=== PATIENT | female | born 1985 | race Caucasian/White ===

== ENCOUNTER 2022-01-19 09:10 | Inpatient (IN) | payer OTHER ==
[2022-01-19] MEDS ORDERED: OXYTOCIN 10 UNIT/ML 1 ML VIAL IM PRN (09:42)
[2022-01-19] MEDS ORDERED: METHYLERGONOVINE 0.2 MG/ML 1 ML AMP IM PRN (09:42)
[2022-01-19] MEDS ORDERED: TERBUTALINE 1 MG/ML VIAL SQ PRN (09:42)
[2022-01-19] MEDS ORDERED: CARBOPROST TROMETHAMINE 250 MCG/ML 1 ML AMP IM PRN (09:42)
[2022-01-19] MEDS ORDERED: LIDOCAINE 0.5% (PF) 5 MG/ML (50 ML SDV) SQ PRN (09:42)
[2022-01-19] MEDS ORDERED: OXYTOCIN 30 UNITS/500 ML NS 30 UNIT in SALINE 1 500ML.BAG IV SCH ×2 (09:45→16:15)
[2022-01-19 10:27] LABS: Appearance,Urine Clear (Clear); Bacteria,Urine Rare /hpf; Bilirubin,Urine Negative (Negative); Blood,Urine Negative (Negative); Color,Urine Light Yellow; Glucose,Urine (UA) Negative (Negative); Ketones,Urine Negative (Negative); Leukocyte Esterase,Urine Moderate (Negative); Mucus,Urine Rare /hpf; Nitrite,Urine Negative (Negative); PH, Urine 7.5 (5.0-8.0); Protein,Urine Negative (Negative); RBC,Urine 1 /hpf (0-5); Squamous Epithelial Cell,Urine 2 /hpf (0-4); Urobilinogen,Urine <2.0 mg/dL (<2.0); WBC,Urine 1 /hpf (0-5)
[2022-01-19 10:38] LABS: Basophils # (A) 0.1 k/uL (0-0.2); Basophils % (A) 1 %; Eosinophils # (A) 0.1 k/uL (0-0.7); Eosinophils % (A) 1 %; HCT 35.8 % (34.0-46.0); HGB 11.4 gm/dL (11.4-16.0); Lymphocytes # (A) 1.2 k/uL (1.0-4.8); Lymphocytes % (A) 11 %; MCV 90.7 fL (80.0-100.0); Monocytes # (A) 0.7 k/uL (0-1.0); Monocytes % (A) 6 %; Neutrophils # (A) 8.5 k/uL (1.3-7.7); Neutrophils % (A) 80 %; Platelet Count 189 k/uL (150-450); RBC 3.94 m/uL (3.80-5.40); RDW 12.9 % (11.5-15.5); WBC 10.6 k/uL (3.8-10.6)
[2022-01-19 10:57] LABS: Protein/Creatinine Ratio,Urine 0.421
[2022-01-19 10:59] LABS: African American GFR (CKD) >90 (>60 ml/min/1.73 sqM); Blood Urea Nitrogen 7 mg/dL (7-17); Non-African American GFR(CKD) >90 (>60 ml/min/1.73 sqM)
[2022-01-19] MEDS: LACTATED RINGERS 1,000 ML IV SCH ×2 (11:04→17:55)
[2022-01-19 11:07] LABS: ALT 15 U/L (4-34); AST 54 U/L (14-36); LDH 1225 U/L (313-618); Uric Acid 2.7 mg/dL (3.7-7.4)
[2022-01-19] MEDS ORDERED: ROPIVACAINE 100 MG, fentaNYL (PF). 200 MCG in SODIUM CHLORIDE 0.9% 76 ML EPIDURAL ONE (14:03)
--- NOTE | 2022-01-19 16:01 | P.PROBDLV ---
Vaginal Delivery Note - . Vaginal Delivery Note: 36-year-old 2 para 1001 at 39-2/7 weeks presented to labor and delivery with complaints of regular painful contractions. Patient was seen in active labor and was admitted to labor and delivery. Patient was noted be 5 cm on initial examination by myself. Amniotomy was performed and clear fluid was obtained. Patient progressed through labor eventually becoming uncomfortable requesting epidural placement. Epidural was placed without difficulty by the anesthesia department. Patient made progress towards complete was placed in a modified lithotomy position began pushing and had a normal spontaneous vaginal delivery of a viable female infant at 1538, weight of 7 pounds 5.6 ounces, Apgars of 9 and 9 at one and 5 metastases respectively. did have a loose nuchal cord which was delivered through. After two-minute delay the umbilical cord was doubly clamped and cut and infant was handed to the maternal abdomen. Spontaneous cry was noted at . The placenta was delivered spontaneously intact with a three-vessel cord being noted. Uterus is noted to become boggy after delivery with a gush of blood, Cytotec 1000 g was placed rectally. Uterus is noted to be firm, bladder was drained for partially 100 mL of clear yellow urine during this time.. On inspection the patient's vaginal vault no lacerations were appreciated. All counts were noted correct 2 at the delivery. Patient and infant tolerated delivery well and are resting comfortably.
[2022-01-19] MEDS ORDERED: HYDROCORTISONE 2.5% RECTAL CREAM 30 GM TUBE RECTAL PRN (16:02)
[2022-01-19] MEDS ORDERED: BENZOCAINE/MENTHOL SPRAY 1 GM/SPRAY AEROSOL TOPICAL PRN (16:02)
[2022-01-19] MEDS ORDERED: diphenhydrAMINE 50 MG/ML 1 ML VIAL IVP PRN ×2 (16:02)
[2022-01-19] MEDS ORDERED: LANOLIN CREAM 5 GM TUBE TOPICAL PRN (16:02)
[2022-01-19] MEDS ORDERED: ZOLPIDEM 5 MG TAB PO PRN (16:02)
[2022-01-19] MEDS ORDERED: diphenhydrAMINE 50 MG CAP PO PRN (16:02)
[2022-01-19] MEDS ORDERED: SIMETHICONE 80 MG CHEWABLE PO PRN (16:02)
[2022-01-19] MEDS ORDERED: diphenhydrAMINE 25 MG CAP PO PRN (16:02)
--- NOTE | 2022-01-19 16:02 | P.HPOB ---
History of Present Illness H&P Date: 01/19/22 Chief Complaint: IUP at 39 weeks, labor This is a 36-year-old at 39 weeks of gestation that presents with complaints of regular painful contractions. Patient denies loss of fluid or vaginal bleeding. Patient has been receiving routine care initially in [place] and then transferred to [facility]. Patient does have a history of preeclampsia with her first and was delivered at 37 weeks secondary to that diagnosis. Patient's blood pressures have been good during this . On bloodwork this patient has a blood type of B+, rubella status immune, RPR is nonreactive, hep B surface antigen is negative, HIV is negative, she did pass her 1 hour gestational diabetes screen, group beta strep cultures on 01/05 were negative. Review of Systems Constitutional: Denies chills, Denies fatigue, Denies fever Ears, nose, mouth and throat: Denies headache Cardiovascular: Denies leg edema Respiratory: Denies dyspnea Gastrointestinal: Denies constipation, Denies diarrhea, Denies nausea, Denies vomiting Genitourinary: Reports Past Medical History History of Any Multi-Drug Resistant Organisms: None Reported Smoking Status: Never smoker Medications and Allergies Home Medications Medication Instructions Recorded Confirmed Type Doxylamine Succinate [Unisom] 25 mg PO HS 01/19/22 01/19/22 History Ondansetron [Zofran] 4 mg PO Q12HR PRN 01/19/22 01/19/22 History Sennosides/Docusate Sodium 1 each PO DAILY 01/19/22 01/19/22 History [Senna-S 8.6-50 mg Tablet] Allergies Allergy/AdvReac Type Severity Reaction Status Date / Time Penicillins Allergy Unknown Verified 01/19/22 09:40 Childhood Exam Osteopathic Statement: *. No significant issues noted on an osteopathic structural exam other than those noted in the History and Physical/Consult. Intake and Output 01/18/22 01/19/22 01/19/22 22:59 06:59 14:59 Other: Weight 73.936 kg Targeted physical exam is performed in this date and health specialist a well-nourished well-developed female in no acute distress, breathing is nonlabored, heart has regular rhythm, abdomen is gravid, on cervical exam she is 3/70/-1 station membranes are noted to be intact. heart tones are noted to be category 1 and she is christian every 2-3 minutes. Results Result Diagrams: 01/19/22 10:17 01/19/22 10:17 Assessment and Plan (1) Term Current Visit: Yes Status: Acute Code(s): Z34.90 - ENCNTR FOR SUPRVSN OF NORMAL , UNSP, UNSP TRIMESTER SNOMED Code(s): 72947309 (2) Active labor Current Visit: Yes Status: Acute Code(s): SRC2533 - SNOMED Code(s): 117653667 Plan: 36-year-old at 39 2/7 weeks of gestation that presents with regular painful contractions. Patient is admitted to labor and delivery, actions for analgesia are discussed including epidural and Stadol. Patient will consider. Anticipate spontaneous vaginal delivery.
[2022-01-19] MEDS ORDERED: miSOPROStoL 200 MCG TAB RECTAL STA (16:03)
[2022-01-19 17:23] VITALS: RESP 16
[2022-01-19] MEDS: IBUPROFEN 600 MG TAB PO SCH ×2 (17:23→23:38)
[2022-01-19] MEDS: SENNOSIDES-DOCUSATE SODIUM 1 EACH TAB PO SCH (20:16)
[2022-01-19] MEDS: ACETAMINOPHEN TAB 325 MG TAB PO PRN (20:19)
[2022-01-20] MEDS: ACETAMINOPHEN TAB 325 MG TAB PO PRN ×3 (03:29→16:29)
[2022-01-20] MEDS: IBUPROFEN 600 MG TAB PO SCH ×2 (05:54→13:08)
[2022-01-20] MEDS: LACTATED RINGERS 1,000 ML IV SCH (06:22)
[2022-01-20 07:42] LABS: Basophils % (A) 0 %; Eosinophils # (A) 0.1 k/uL (0-0.7); Eosinophils % (A) 1 %; HCT 34.1 % (34.0-46.0); HGB 11.1 gm/dL (11.4-16.0); Lymphocytes # (A) 1.5 k/uL (1.0-4.8); Lymphocytes % (A) 12 %; MCH 29.4 pg (25.0-35.0); MCHC 32.5 g/dL (31.0-37.0); MCV 90.5 fL (80.0-100.0); Mean Platelet Volume 9.5; Monocytes # (A) 0.7 k/uL (0-1.0); Monocytes % (A) 6 %; Neutrophils # (A) 10.1 k/uL (1.3-7.7); Neutrophils % (A) 81 %; Platelet Count 185 k/uL (150-450); RBC 3.77 m/uL (3.80-5.40); RDW 12.8 % (11.5-15.5); WBC 12.6 k/uL (3.8-10.6)
[2022-01-20] MEDS: SENNOSIDES-DOCUSATE SODIUM 1 EACH TAB PO SCH (08:36)
--- NOTE | 2022-01-20 09:41 | P.DS ---
Providers Date of admission: 01/19/22 09:38 Expected date of discharge: 01/20/22 Attending physician: Lucero Biswas Primary care physician: Stated None - Discharge Diagnosis(es) (1) Term Current Visit: Yes Status: Acute (2) Active labor Current Visit: Yes Status: Acute (3) Status post vaginal delivery Current Visit: Yes Status: Acute Hospital Course: This is a 36-year-old G2 now P2 002 that presented at 39-2/7 weeks with complaints of regular painful contractions. Patient states she's been christian through the evening and they became closer and more painful. Patient was admitted to labor and delivery and was noted to be 5 cm. Amniotomy was performed and clear fluid was obtained. Patient progressed through labor eventually requesting an epidural. Epidural was placed without difficulty by [facility] anesthesia department. Patient progressed to complete began pushing and had a normal spontaneous vaginal delivery of a viable female infant at 1538, weight of 7 pounds 5.6 ounces. No lacerations were appreciated at delivery. Patient did have a hemorrhage with uterine atony and increased bleeding noted Cytotec 1000 g was given rectally. Uterus was then noted to be firm and patient did well overnight. On this day #1 patient is ambulating and voiding without difficulty. She is tolerating regular diet without nausea or vomiting. She states she is breast-feeding without difficulty. She is without concerns and would like discharge home at 24 hours if is discharged. Patient Condition at Discharge: Good Plan - Discharge Summary New Discharge Prescriptions: No Action Ondansetron [Zofran] 4 mg PO Q12HR PRN PRN Reason: Nausea Doxylamine Succinate [Unisom] 25 mg PO HS Sennosides/Docusate Sodium [Senna-S 8.6-50 mg Tablet] 1 each PO DAILY Discharge Medication List Doxylamine Succinate [Unisom] 25 mg PO HS 01/19/22 [History] Ondansetron [Zofran] 4 mg PO Q12HR PRN 01/19/22 [History] Sennosides/Docusate Sodium [Senna-S 8.6-50 mg Tablet] 1 each PO DAILY 01/19/22 [History] Follow up Appointment(s)/Referral(s): Lucero Biswas DO [Doctor of Osteopathic Medicine] - 4 Weeks Patient Instructions/Handouts: Vaginal Delivery (DC), Vaginal Delivery (GEN) Activity/Diet/Wound Care/Special Instructions: Patient's affect moderate vaginal bleeding status post vaginal delivery. Patient is to follow-up in 4 weeks for routine check. She is feeling concerns prior to this appointment she is urged to call the office. Discharge Disposition: HOME SELF-CARE
[2022-01-20 11:02] VITALS: BP 127/77; PULSE 77; TEMP 97.3
== END 2022-01-20 17:05 | disposition home or self-care (01) | DRG 806 ==
LOC: FBPOP 09:10 → 4FBP 09:38
PROVIDERS: ADMIT Obstetrics & Gynecology Obstetrics; ATTEND Obstetrics & Gynecology Obstetrics
PROC: 10907ZC Drainage of Amniotic Fluid, Therapeutic from Products of Conception, Via Natural or Artificial Opening (ICD-10-PCS; principal; 2022-01-19)
PROC: 10E0XZZ Delivery of Products of Conception, External Approach (ICD-10-PCS; principal; 2022-01-19)
PROC: 3E0R3BZ Introduction of Anesthetic Agent into Spinal Canal, Percutaneous Approach (ICD-10-PCS; principal; 2022-01-19)
PROC: 00HU33Z Insertion of Infusion Device into Spinal Canal, Percutaneous Approach (ICD-10-PCS; principal; 2022-01-19)
DX: O69.81X0 Labor and delivery complicated by cord around neck, without compression, not applicable or unspecified (principal); O72.1 Other immediate postpartum hemorrhage; Z37.0 Single live birth; Z3A.39 39 weeks gestation of pregnancy
CPT/HCPCS: 81001; 82565; 82570; 83615; 84156; 84450; 84460; 84520; 84550; 85025; 86850; 86900; 86901

== ENCOUNTER → 2022-04-14 | Outpatient (CLI) | payer OTHER ==
--- NOTE | 2022-04-15 04:14 | MR ---
EXAMINATION TYPE: MR knee LT wo con DATE OF EXAM: 04/14/2022 COMPARISON: None HISTORY: Knee pain. Multiplanar multi echo imaging of the left knee performed with no contrast. There is metal artifact from bilateral reconstructive surgery of the anterior cruciate ligament. ACL appears intact. Posterior cruciate ligament is intact. There is mild knee joint effusion. There are s ome cystic changes in the anterior joint space at the tibial spines. There is some metal artifact fro m surgery on the patella. The patella tendon is intact. There is large oblique tear through the anter ior horn of the lateral meniscus. There is mild thinning of the posterior horn of the medial meniscus . The collateral ligaments are intact. No evidence of a fracture. No focal bone destruction. IMPRESSION: Knee joint effusion. Large tear of the anterior horn of the lateral meniscus. Degenerative thinning o f the posterior horn medial meniscus. Previous surgery. No evidence of ligamentous tear.
== END | disposition home or self-care (01) ==
LOC: RADMRIMAIN 10:25
PROVIDERS: ATTEND Orthopaedic Surgery
DX: M23.242 Derangement of anterior horn of lateral meniscus due to old tear or injury, left knee (principal); M23.222 Derangement of posterior horn of medial meniscus due to old tear or injury, left knee; M25.462 Effusion, left knee; M25.562 Pain in left knee

== ENCOUNTER 2022-05-31 23:49 | Emergency (ER) | payer OTHER ==
[2022-06-01 01:14] LABS: Appearance,Urine Cloudy (Clear); Bacteria,Urine Occasional /hpf; Bilirubin,Urine Negative (Negative); Blood,Urine Large (Negative); Color,Urine Dark Yellow; Glucose,Urine (UA) Negative (Negative); Ketones,Urine Trace (Negative); Leukocyte Esterase,Urine Moderate (Negative); Mucus,Urine Many /hpf; Nitrite,Urine Negative (Negative); PH, Urine 5.5 (5.0-8.0); Protein,Urine 1+ (Negative); RBC,Urine 4 /hpf (0-5); Squamous Epithelial Cell,Urine 11 /hpf (0-4); Urobilinogen,Urine <2.0 mg/dL (<2.0); WBC,Urine 27 /hpf (0-5)
[2022-06-01] MEDS ORDERED: KETOROLAC 15 MG/ML 1 ML VIAL IVP STA (01:45)
[2022-06-01] MEDS ORDERED: SODIUM CHLORIDE 0.9% 1,000 ML IV STA (01:45)
[2022-06-01] MEDS ORDERED: ONDANSETRON 4 MG/2 ML VIAL IVP STA (01:45)
[2022-06-01 02:13] VITALS: TEMP 97.6
[2022-06-01 02:32] LABS: ALT 26 U/L (4-34); AST 25 U/L (14-36); African American GFR (CKD) >90 (>60 ml/min/1.73 sqM); Albumin 5.1 g/dL (3.5-5.0); Alkaline Phosphatase 65 U/L (38-126); Amylase 68 U/L (30-110); Anion Gap 12 mmol/L; Blood Urea Nitrogen 22 mg/dL (7-17); Calcium 9.9 mg/dL (8.4-10.2); Carbon Dioxide 25 mmol/L (22-30); Chloride 105 mmol/L (98-107); Glucose 172 mg/dL (74-99); Lipase 86 U/L (23-300); Non-African American GFR(CKD) >90 (>60 ml/min/1.73 sqM); Potassium 4.2 mmol/L (3.5-5.1); Sodium 142 mmol/L (137-145); Total Bilirubin 1.4 mg/dL (0.2-1.3); Total Protein 8.2 g/dL (6.3-8.2)
[2022-06-01 02:46] LABS: Basophils % (A) 0 %; Eosinophils # (A) 0.1 k/uL (0-0.7); Eosinophils % (A) 1 %; HCT 41.3 % (34.0-46.0); HGB 14.5 gm/dL (11.4-16.0); Lymphocytes # (A) 0.2 k/uL (1.0-4.8); Lymphocytes % (A) 2 %; MCH 30.7 pg (25.0-35.0); MCV 87.5 fL (80.0-100.0); Mean Platelet Volume 7.9; Monocytes # (A) 0.4 k/uL (0-1.0); Monocytes % (A) 3 %; Neutrophils # (A) 10.8 k/uL (1.3-7.7); Neutrophils % (A) 93 %; Platelet Count 155 k/uL (150-450); RBC 4.72 m/uL (3.80-5.40); RDW 12.7 % (11.5-15.5); WBC 11.5 k/uL (3.8-10.6)
--- NOTE | 2022-06-01 02:49 | ED ---
Abdominal Pain HPI - General Chief Complaint: Abdominal Pain Stated Complaint: vomiting,diarrhea Time Seen by Provider: 06/01/22 01:41 Source: patient, RN notes reviewed Mode of arrival: ambulatory Limitations: no limitations - History of Present Illness Initial Comments: This is a 36-year-old female who presents to the emergency department for nausea, vomiting, and abdominal pain. States that the symptoms started earlier this evening. She also reports associated diarrhea. She has been unable to keep anything down. Denies any blood in her stool or vomit. Believes that the abdominal pain is due to the nausea and vomiting and describes it as a cramping. She does note that she made stirfry for dinner and subsequently used sauce, and wonders if this may be the reason for her symptoms. Denies any fevers, chills, sore throat, cough, dyspnea, chest pain, palpitations, back pain, or headaches. MD Complaint: abdominal pain - Related Data Home Medications Medication Instructions Recorded Confirmed Doxylamine Succinate [Unisom] 25 mg PO HS 01/19/22 01/19/22 Ondansetron [Zofran] 4 mg PO Q12HR PRN 01/19/22 01/19/22 Sennosides/Docusate Sodium 1 each PO DAILY 01/19/22 01/19/22 [Senna-S 8.6-50 mg Tablet] Allergies Allergy/AdvReac Type Severity Reaction Status Date / Time Penicillins Allergy Unknown Verified 06/01/22 00:03 Childhood Review of Systems ROS Statement: Those systems with pertinent positive or pertinent negative responses have been documented in the HPI. ROS Other: All systems not noted in ROS Statement are negative. Past Medical History Past Medical History: No Reported History Additional Past Medical History / Comment(s): HYPERTENSION WITH History of Any Multi-Drug Resistant Organisms: None Reported Past Surgical History: Tonsillectomy Additional Past Surgical History / Comment(s): Left ACL repair, Past Anesthesia/Blood Transfusion Reactions: No Reported Reaction Past Psychological History: No Psychological Hx Reported Smoking Status: Never smoker Past Alcohol Use History: Occasional Past Drug Use History: None Reported General Exam Limitations: no limitations General appearance: alert, in no apparent distress Head exam: Present: atraumatic, normocephalic, normal inspection Respiratory exam: Present: normal lung sounds bilaterally. Absent: respiratory distress, wheezes, rales, rhonchi, stridor Cardiovascular Exam: Present: regular rate, normal rhythm, normal heart sounds. Absent: systolic murmur, diastolic murmur, rubs, gallop, clicks GI/Abdominal exam: Present: soft, normal bowel sounds. Absent: distended, tenderness, guarding, rebound, rigid Neurological exam: Present: alert, oriented X3, CN II-XII intact Psychiatric exam: Present: normal affect, normal mood Skin exam: Present: warm, dry, intact, normal color. Absent: rash Course Vital Signs 05/31/22 06/01/22 06/01/22 23:59 02:11 04:09 Temperature 96.8 F L 97.6 F Pulse Rate 116 H 81 96 Respiratory 20 18 16 Rate Blood Pressure 100/69 115/77 111/64 O2 Sat by Pulse 98 100 98 Oximetry Medical Decision Making - Medical Decision Making This is a 36-year-old female who presents to the emergency department for nausea, vomiting, and abdominal pain. Was pt. sent in by a medical professional or institution? @ -No Did you speak to anyone other than the patient for history? @ -No Did you review nursing and triage notes? @ -Agree, accurate with regards to the patient's symptoms. Were old charts reviewed? @ -No Differential Diagnosis? @ Differential Abdominal Pain Women: Appendicitis, Cholecystitis, diverticulosis, ischemic bowel, pancreatitis, hepatitis, UTI, gastroenteritis, AAA, incarcerated hernia, bowel obstruction, constipation, inflammatory bowel, hepatitis, peptic ulcer disease, splenic inf arction, perforated viscus, vulvitis, ovarian torsion, PID, kidney stone, placenta abruption, this is not meant to be an all-inclusive list X-rays interpreted by me (1pt min.)? @ -Abdominal x-ray obtained, my interpretation identifies no free air or bowel wall thickening. What testing was considered but not performed? (CT, X-rays, U/S, labs)? Why? @ -None What meds were considered but not given? Why? @ -None Did you discuss the management of the patient with other professionals? @ -No Did you reconcile home meds? @ -No Was smoking cessation discussed for >3mins.? @ -No Was critical care preformed (if so, how long)? @ -No Were there social determinants of health that impacted care today? How? (Homelessness, low income, unemployed, alcoholism, drug addiction, transportation, low edu. Level, literacy, decrease access to med. care, [facility], rehab)? @ -No Was there de-escalation of care discussed even if they declined? (Discuss DNR or withdrawal of care, Hospice)? @ -No What co-morbidities impacted this encounter? (DM, HTN, Smoking, COPD, CAD, Cancer, CVA, Hep., AIDS, mental health diagnosis, sleep apnea, morbid obesity)? @ -None Was patient admitted / discharged? @ -Discharged. Lab work obtained and found to be nonactionable. Abdominal x- ray obtained as well with my interpretation listed above. Urinalysis consistent with contamination. She was given IV fluids, Zofran, and Toradol, which she states is entirely resolved her symptoms. She was able to eat and drink prior discharged without any difficulty. Advised that the symptoms are most likely related to a gastroenteritis which may be viral or have been from the sauce she used for dinner. When this was discussed, she states that she received a call from her father, who is also vomiting after eating the stirfry, further strengthening this possibility. She has Zofran at home, and declines the need for a refill. Advised she use the zofran every 8 hours as needed, remain well-hydrated, and slowly advance her diet as tolerated. Drug Therapy requiring intensive monitoring for toxicity (Heparin, Nitro, Insulin, Cardizem)? @ -None Were any procedures done? @ -None Diagnosis/symptom? @ -Gastroenteritis Acute, or Chronic, or Acute on Chronic? @ -Acute Uncomplicated (without systemic symptoms) or Complicated (systemic symptoms)? @ -Uncomplicated Side effects of treatment? @ -No new treatment provided. Exacerbation, Progression, or Severe Exacerbation] @ -Not applicable Poses a threat to life or bodily function? @ -May impact her function depending on the severity of her symptoms. Return precautions reviewed in depth, the patient is instructed to return to the emergency department with any new, worsening, or concerning symptoms. Patient verbalized understanding. This case was discussed in detail with the attending ED physician. Presentation, findings, and treatment plan discussed in detail as well. - Lab Data Result diagrams: 06/01/22 02:30 06/01/22 01:57 Lab Results 01/05/23 01/05/23 01/05/23 Range/Units 00:27 00:27 01:57 WBC (3.8-10.6) k/uL RBC (3.80-5.40) m/uL Hgb (11.4-16.0) gm/dL Hct (34.0-46.0) % MCV (80.0-100.0) fL MCH (25.0-35.0) pg MCHC (31.0-37.0) g/dL RDW (11.5-15.5) % Plt Count (150-450) k/uL MPV Neutrophils % % Lymphocytes % % Monocytes % % Eosinophils % % Basophils % % Neutrophils # (1.3-7.7) k/uL Lymphocytes # (1.0-4.8) k/uL Monocytes # (0-1.0) k/uL Eosinophils # (0-0.7) k/uL Basophils # (0-0.2) k/uL Sodium 142 (137-145) mmol/L Potassium 4.2 (3.5-5.1) mmol/L Chloride 105 (98-107) mmol/L Carbon Dioxide 25 (22-30) mmol/L Anion Gap 12 mmol/L BUN 22 H (7-17) mg/dL Creatinine 0.78 (0.52-1.04) mg/dL Est GFR (CKD-EPI)AfAm >90 (>60 ml/min/1.73 sqM) Est GFR (CKD-EPI)NonAf >90 (>60 ml/min/1.73 sqM) Glucose 172 H (74-99) mg/dL Calcium 9.9 (8.4-10.2) mg/dL Total Bilirubin 1.4 H (0.2-1.3) mg/dL AST 25 (14-36) U/L ALT 26 (4-34) U/L Alkaline Phosphatase 65 (38-126) U/L Total Protein 8.2 (6.3-8.2) g/dL Albumin 5.1 H (3.5-5.0) g/dL Amylase 68 (30-110) U/L Lipase 86 (23-300) U/L Urine Color Dark Yellow Urine Appearance Cloudy H (Clear) Urine pH 5.5 (5.0-8.0) Ur Specific [place] 1.030 (1.001-1.035) Urine Protein 1+ H (Negative) Urine Glucose (UA) Negative (Negative) Urine Ketones Trace H (Negative) Urine Blood Large H (Negative) Urine Nitrite Negative (Negative) Urine Bilirubin Negative (Negative) Urine Urobilinogen <2.0 (<2.0) mg/dL Ur Leukocyte Esterase Moderate H (Negative) Urine RBC 4 (0-5) /hpf Urine WBC 27 H (0-5) /hpf Ur Squamous Epith Cells 11 H (0-4) /hpf Urine Bacteria Occasional H (None) /hpf Urine Mucus Many H (None) /hpf Urine HCG, Qual Not Detected (Not Detectd) 06/01/22 Range/Units 02:30 WBC 11.5 H (3.8-10.6) k/uL RBC 4.72 (3.80-5.40) m/uL Hgb 14.5 (11.4-16.0) gm/dL Hct 41.3 (34.0-46.0) % MCV 87.5 (80.0-100.0) fL MCH 30.7 (25.0-35.0) pg MCHC 35.0 (31.0-37.0) g/dL RDW 12.7 (11.5-15.5) % Plt Count 155 (150-450) k/uL MPV 7.9 Neutrophils % 93 % Lymphocytes % 2 % Monocytes % 3 % Eosinophils % 1 % Basophils % 0 % Neutrophils # 10.8 H (1.3-7.7) k/uL Lymphocytes # 0.2 L (1.0-4.8) k/uL Monocytes # 0.4 (0-1.0) k/uL Eosinophils # 0.1 (0-0.7) k/uL Basophils # 0.0 (0-0.2) k/uL Sodium (137-145) mmol/L Potassium (3.5-5.1) mmol/L Chloride (98-107) mmol/L Carbon Dioxide (22-30) mmol/L Anion Gap mmol/L BUN (7-17) mg/dL Creatinine (0.52-1.04) mg/dL Est GFR (CKD-EPI)AfAm (>60 ml/min/1.73 sqM) Est GFR (CKD-EPI)NonAf (>60 ml/min/1.73 sqM) Glucose (74-99) mg/dL Calcium (8.4-10.2) mg/dL Total Bilirubin (0.2-1.3) mg/dL AST (14-36) U/L ALT (4-34) U/L Alkaline Phosphatase (38-126) U/L Total Protein (6.3-8.2) g/dL Albumin (3.5-5.0) g/dL Amylase (30-110) U/L Lipase (23-300) U/L Urine Color Urine Appearance (Clear) Urine pH (5.0-8.0) Ur Specific [place] (1.001-1.035) Urine Protein (Negative) Urine Glucose (UA) (Negative) Urine Ketones (Negative) Urine Blood (Negative) Urine Nitrite (Negative) Urine Bilirubin (Negative) Urine Urobilinogen (<2.0) mg/dL Ur Leukocyte Esterase (Negative) Urine RBC (0-5) /hpf Urine WBC (0-5) /hpf Ur Squamous Epith Cells (0-4) /hpf Urine Bacteria (None) /hpf Urine Mucus (None) /hpf Urine HCG, Qual (Not Detectd) - Radiology Data Radiology results: report reviewed, image reviewed Disposition Clinical Impression: Gastroenteritis Disposition: HOME SELF-CARE Instructions (If sedation given, give patient instructions): Gastroenteritis (ED) Additional Instructions: Return to the emergency department with any new, worsening, or concerning symptoms. Continue to take the Zofran up to every 8 hours as needed for nausea and vomiting. Alternate with ibuprofen and Tylenol as needed for discomfort. Slowly advance your diet as tolerated and make sure that you remain well- hydrated. Follow up with your primary care provider in 1-2 days. Is patient prescribed a controlled substance at d/c from ED?: No Referrals: None,Stated [Primary Care Provider] - 1-2 days
--- NOTE | 2022-06-01 02:52 | XR ---
EXAMINATION TYPE: XR abdomen 1V DATE OF EXAM: 06/01/2022 COMPARISON: NONE HISTORY: Abdominal pain TECHNIQUE: 2 views upright FINDINGS: There is no sign of intestinal obstruction or pneumoperitoneum. Fecal pattern is normal. No sign of a mass. Lung bases are clear. IMPRESSION: Nonacute abdomen.
[2022-06-01 04:09] VITALS: BP 111/64; PULSE 96; RESP 16
== END 2022-06-01 04:15 | disposition home or self-care (01) ==
LOC: EC 23:49
DX: K52.9 Noninfective gastroenteritis and colitis, unspecified (principal); Z88.0 Allergy status to penicillin
CPT/HCPCS: 36415; 80053; 82150; 83690; 85025; 81001; 81025; 87086; 74018; 99284; 96374; 96375; 96361; J2405; J1885

== ENCOUNTER 2022-09-08 00:39 | Emergency (ER) | payer OTHER ==
[2022-09-08 00:46] VITALS: BP 125/85; PULSE 92; RESP 18; TEMP 97.7
[2022-09-08] MEDS ORDERED: SODIUM CHLORIDE 0.9% 1,000 ML IV ONE ×2 (01:08→02:36)
--- NOTE | 2022-09-08 01:50 | ED ---
General Adult HPI - General Chief complaint: Abdominal Pain Stated complaint: Abdominal Pain, NVD Time Seen by Provider: 09/08/22 00:54 Source: patient Mode of arrival: ambulatory Limitations: no limitations - History of Present Illness Initial comments: This is a 36-year-old female with no past medical history presents emergency department for nausea, vomiting and diarrhea over the last 4 days. The patient stated that the symptoms have become worse including worsening diarrhea. The patient stated that she did have Zofran at home as helped with the nausea and vomiting at home. The patient stated that she did not expect the symptoms to last this long and felt that she was getting mildly dehydrated so she came to the emergency department. The patient stated that multiple people that she was with on Sunday have similar symptoms. The patient denied any fevers and chills however. The patient did state that she had some minor body aches. The patient denied any other acute pain or complaints at this time and was resting in bed comfortably. - Related Data Home Medications Medication Instructions Recorded Confirmed Doxylamine Succinate [Unisom] 25 mg PO HS 01/19/22 01/19/22 Ondansetron [Zofran] 4 mg PO Q12HR PRN 01/19/22 01/19/22 Sennosides/Docusate Sodium 1 each PO DAILY 01/19/22 01/19/22 [Senna-S 8.6-50 mg Tablet] Previous Rx's Medication Instructions Recorded Dicyclomine [Bentyl] 10 mg PO TID #30 capsule 09/08/22 Ondansetron Odt [Zofran Odt] 4 mg PO Q8HR PRN #20 tab 09/08/22 Allergies Allergy/AdvReac Type Severity Reaction Status Date / Time Penicillins Allergy Unknown Verified 09/08/22 00:43 Childhood Review of Systems ROS Statement: Those systems with pertinent positive or pertinent negative responses have been documented in the HPI. ROS Other: All systems not noted in ROS Statement are negative. Past Medical History Past Medical History: No Reported History Additional Past Medical History / Comment(s): HYPERTENSION WITH History of Any Multi-Drug Resistant Organisms: None Reported Past Surgical History: Tonsillectomy Additional Past Surgical History / Comment(s): Left ACL repair, Past Anesthesia/Blood Transfusion Reactions: No Reported Reaction Past Psychological History: No Psychological Hx Reported Smoking Status: Never smoker Past Alcohol Use History: Occasional Past Drug Use History: None Reported General Exam Limitations: no limitations General appearance: alert, in no apparent distress Head exam: Present: atraumatic, normocephalic, normal inspection Eye exam: Present: normal appearance, PERRL Pupils: Present: normal accommodation ENT exam: Present: normal exam, normal oropharynx, mucous membranes moist Neck exam: Present: normal inspection, full ROM Respiratory exam: Present: normal lung sounds bilaterally Cardiovascular Exam: Present: regular rate, normal rhythm, normal heart sounds GI/Abdominal exam: Present: soft, normal bowel sounds Extremities exam: Present: normal inspection, full ROM Back exam: Present: normal inspection, full ROM Neurological exam: Present: alert, oriented X3, CN II-XII intact Psychiatric exam: Present: normal affect, normal mood Skin exam: Present: warm, dry Course Vital Signs 09/08/22 00:43 Temperature 97.7 F Pulse Rate 92 Respiratory 18 Rate Blood Pressure 125/85 O2 Sat by Pulse 98 Oximetry Medical Decision Making - Medical Decision Making Was pt. sent in by a medical professional or institution ([facility], [facility], urgent care, hospital, or [facility]...) When possible be specific @ -No Did you speak to anyone other than the patient for history (EMS, parent, family, police, friend...)? What history was obtained from this source @ -No Did you review nursing and triage notes (agree or disagree)? Why? @ -I reviewed and agree with nursing and triage notes Were old charts reviewed (outside hosp., previous admission, EMS record, old EKG, old radiological studies, urgent care reports/EKG's, [facility] records)? Report findings @ -No old charts were reviewed Differential Diagnosis (chest pain, altered mental status, abdominal pain women, abdominal pain men, vaginal bleeding, weakness, fever, dyspnea, syncope, headache, dizziness, GI bleed, back pain, seizure, CVA, palpatations, mental health)? @ -Gastroenteritis, COVID-19, influenza EKG interpreted by me (3pts min.). @ -None X-rays interpreted by me (1pt min.). @ -None done CT interpreted by me (1pt min.). @ -None done U/S interpreted by me (1pt. min.). @ -None done What testing was considered but not performed or refused? (CT, X-rays, U/S, labs)? Why? @ -None What meds were considered but not given or refused? Why? @ -None Did you discuss the management of the patient with other professionals (professionals i.e. , PA, [employer], lab, RT, psych nurse, rn social services, chemical processor, teacher, commissioned fire officer, case checker)? Give summary @ -No Was smoking cessation discussed for >3mins.? @ -No Was critical care preformed (if so, how long)? @ -No Were there social determinants of health that impacted care today? How? (Homelessness, low income, unemployed, alcoholism, drug addiction, transportation, low edu. Level, literacy, decrease access to med. care, care home, rehab)? @ -No Was there de-escalation of care discussed even if they declined (Discuss DNR or withdrawal of care, Hospice)? DNR status @ -No What co-morbidities impacted this encounter? (DM, HTN, Smoking, COPD, CAD, Cancer, CVA, ARF, Chemo, Hep., AIDS, mental health diagnosis, sleep apnea, morbid obesity)? @ -None Was patient admitted / discharged? Hospital course, mention meds given and route, prescriptions, significant lab abnormalities, going to OR and other pertinent info. @ -The patient was seen and evaluated emergency department. Physical exam, the patient was resting in bed without any acute distress. Vital signs admission were stable. Due to the nature the patient's symptoms, laboratory workup was obtained and was all within normal limits. The patient received a total of 2 L of normal saline fluid as well as Toradol. On reevaluation, the patient stated that she had improvement of her symptoms but still had abdominal discomfort. There was no specific acute abdominal pain but noted cramping. The patient was given IM Bentyl as well as Zofran and on reevaluation had significant improvement in her pain. The patient likely had gastroenteritis as a cause of her symptoms. The patient was given a prescription for both Bentyl and Zofran and told to continue to monitor her symptoms to report back to the emergency department if they became acutely worse. The patient was advised to continue to hydrate at home and follow-up with her primary care physician if needed. The patient was understanding of these instructions and all of her questions were a nswered appropriately. The patient was discharged home in stable condition. Undiagnosed new problem with uncertain prognosis? @ -No Drug Therapy requiring intensive monitoring for toxicity (Heparin, Nitro, Insulin, Cardizem)? @ -No Were any procedures done? @ -No Diagnosis/symptom? @ -Gastroenteritis Acute, or Chronic, or Acute on Chronic? @ -Acute Uncomplicated (without systemic symptoms) or Complicated (systemic symptoms)? @ -Uncomplicated Side effects of treatment? @ -No Exacerbation, Progression, or Severe Exacerbation? @ -No Poses a threat to life or bodily function? How? (Chest pain, [place], [place], pneumonia, PE, COPD, DKA, ARF, appy, cholecystitis, CVA, Diverticulitis, Homicidal, Suicidal, threat to staff... and all critical care pts) @ -No - Lab Data Result diagrams: 09/08/22 01:19 09/08/22 01:19 Lab Results 09/08/22 09/08/22 09/08/22 Range/Units 01:19 01:19 01:19 WBC 7.8 (3.8-10.6) k/uL RBC 4.61 (3.80-5.40) m/uL Hgb 13.9 (11.4-16.0) gm/dL Hct 41.1 (34.0-46.0) % MCV 89.3 (80.0-100.0) fL MCH 30.1 (25.0-35.0) pg MCHC 33.7 (31.0-37.0) g/dL RDW 12.3 (11.5-15.5) % Plt Count 144 L (150-450) k/uL MPV 8.1 Neutrophils % 80 % Lymphocytes % 10 % Monocytes % 7 % Eosinophils % 1 % Basophils % 0 % Neutrophils # 6.2 (1.3-7.7) k/uL Lymphocytes # 0.8 L (1.0-4.8) k/uL Monocytes # 0.5 (0-1.0) k/uL Eosinophils # 0.1 (0-0.7) k/uL Basophils # 0.0 (0-0.2) k/uL Sodium 140 (137-145) mmol/L Potassium 3.5 (3.5-5.1) mmol/L Chloride 110 H (98-107) mmol/L Carbon Dioxide 23 (22-30) mmol/L Anion Gap 7 mmol/L BUN 11 (7-17) mg/dL Creatinine 0.63 (0.52-1.04) mg/dL Est GFR (CKD-EPI)AfAm >90 (>60 ml/min/1.73 sqM) Est GFR (CKD-EPI)NonAf >90 (>60 ml/min/1.73 sqM) Glucose 102 H (74-99) mg/dL Calcium 8.5 (8.4-10.2) mg/dL Magnesium 2.0 (1.6-2.3) mg/dL Total Bilirubin 0.3 (0.2-1.3) mg/dL AST 22 (14-36) U/L ALT 19 (4-34) U/L Alkaline Phosphatase 48 (38-126) U/L Total Protein 6.5 (6.3-8.2) g/dL Albumin 4.0 (3.5-5.0) g/dL Lipase 150 (23-300) U/L Urine Color Urine Appearance (Clear) Urine pH (5.0-8.0) Ur Specific [place] (1.001-1.035) Urine Protein (Negative) Urine Glucose (UA) (Negative) Urine Ketones (Negative) Urine Blood (Negative) Urine Nitrite (Negative) Urine Bilirubin (Negative) Urine Urobilinogen (<2.0) mg/dL Ur Leukocyte Esterase (Negative) Urine RBC (0-5) /hpf Urine WBC (0-5) /hpf Ur Squamous Epith Cells (0-4) /hpf Urine Bacteria (None) /hpf Urine HCG, Qual Not Detected (Not Detectd) Influenza Type A (PCR) (Not Detectd) Influenza Type B (PCR) (Not Detectd) RSV (PCR) (Not Detectd) SARS-CoV-2 (PCR) (Not Detectd) 09/08/22 09/08/22 Range/Units 01:19 01:19 WBC (3.8-10.6) k/uL RBC (3.80-5.40) m/uL Hgb (11.4-16.0) gm/dL Hct (34.0-46.0) % MCV (80.0-100.0) fL MCH (25.0-35.0) pg MCHC (31.0-37.0) g/dL RDW (11.5-15.5) % Plt Count (150-450) k/uL MPV Neutrophils % % Lymphocytes % % Monocytes % % Eosinophils % % Basophils % % Neutrophils # (1.3-7.7) k/uL Lymphocytes # (1.0-4.8) k/uL Monocytes # (0-1.0) k/uL Eosinophils # (0-0.7) k/uL Basophils # (0-0.2) k/uL Sodium (137-145) mmol/L Potassium (3.5-5.1) mmol/L Chloride (98-107) mmol/L Carbon Dioxide (22-30) mmol/L Anion Gap mmol/L BUN (7-17) mg/dL Creatinine (0.52-1.04) mg/dL Est GFR (CKD-EPI)AfAm (>60 ml/min/1.73 sqM) Est GFR (CKD-EPI)NonAf (>60 ml/min/1.73 sqM) Glucose (74-99) mg/dL Calcium (8.4-10.2) mg/dL Magnesium (1.6-2.3) mg/dL Total Bilirubin (0.2-1.3) mg/dL AST (14-36) U/L ALT (4-34) U/L Alkaline Phosphatase (38-126) U/L Total Protein (6.3-8.2) g/dL Albumin (3.5-5.0) g/dL Lipase (23-300) U/L Urine Color Light Yellow Urine Appearance Cloudy H (Clear) Urine pH 5.5 (5.0-8.0) Ur Specific [place] 1.010 (1.001-1.035) Urine Protein Negative (Negative) Urine Glucose (UA) Negative (Negative) Urine Ketones Trace H (Negative) Urine Blood Negative (Negative) Urine Nitrite Negative (Negative) Urine Bilirubin Negative (Negative) Urine Urobilinogen <2.0 (<2.0) mg/dL Ur Leukocyte Esterase Negative (Negative) Urine RBC 1 (0-5) /hpf Urine WBC 1 (0-5) /hpf Ur Squamous Epith Cells 1 (0-4) /hpf Urine Bacteria Rare H (None) /hpf Urine HCG, Qual (Not Detectd) Influenza Type A (PCR) Not Detected (Not Detectd) Influenza Type B (PCR) Not Detected (Not Detectd) RSV (PCR) Not Detected (Not Detectd) SARS-CoV-2 (PCR) Not Detected (Not Detectd) Disposition Clinical Impression: Gastroenteritis Disposition: HOME SELF-CARE Condition: Stable Instructions (If sedation given, give patient instructions): Gastroenteritis (DC) Prescriptions: Dicyclomine [Bentyl] 10 mg PO TID #30 capsule Ondansetron Odt [Zofran Odt] 4 mg PO Q8HR PRN #20 tab PRN Reason: Nausea Is patient prescribed a controlled substance at d/c from ED?: No Referrals: None,Stated [Primary Care Provider] - 1-2 days Time of Disposition: 03:00
[2022-09-08 02:12] LABS: ALT 19 U/L (4-34); AST 22 U/L (14-36); African American GFR (CKD) >90 (>60 ml/min/1.73 sqM); Alkaline Phosphatase 48 U/L (38-126); Anion Gap 7 mmol/L; Blood Urea Nitrogen 11 mg/dL (7-17); Calcium 8.5 mg/dL (8.4-10.2); Carbon Dioxide 23 mmol/L (22-30); Chloride 110 mmol/L (98-107); Glucose 102 mg/dL (74-99); Lipase 150 U/L (23-300); Non-African American GFR(CKD) >90 (>60 ml/min/1.73 sqM); Potassium 3.5 mmol/L (3.5-5.1); Sodium 140 mmol/L (137-145); Total Bilirubin 0.3 mg/dL (0.2-1.3); Total Protein 6.5 g/dL (6.3-8.2)
[2022-09-08 02:19] LABS: Basophils % (A) 0 %; Eosinophils # (A) 0.1 k/uL (0-0.7); Eosinophils % (A) 1 %; HCT 41.1 % (34.0-46.0); HGB 13.9 gm/dL (11.4-16.0); Lymphocytes # (A) 0.8 k/uL (1.0-4.8); Lymphocytes % (A) 10 %; MCH 30.1 pg (25.0-35.0); MCHC 33.7 g/dL (31.0-37.0); MCV 89.3 fL (80.0-100.0); Mean Platelet Volume 8.1; Monocytes # (A) 0.5 k/uL (0-1.0); Monocytes % (A) 7 %; Neutrophils # (A) 6.2 k/uL (1.3-7.7); Neutrophils % (A) 80 %; Platelet Count 144 k/uL (150-450); RBC 4.61 m/uL (3.80-5.40); RDW 12.3 % (11.5-15.5); WBC 7.8 k/uL (3.8-10.6)
[2022-09-08] MEDS ORDERED: DICYCLOMINE 10 MG/ML 2 ML AMP IM STA (02:36)
[2022-09-08 02:58] LABS: Appearance,Urine Cloudy (Clear); Bacteria,Urine Rare /hpf; Bilirubin,Urine Negative (Negative); Blood,Urine Negative (Negative); Color,Urine Light Yellow; Glucose,Urine (UA) Negative (Negative); Ketones,Urine Trace (Negative); Leukocyte Esterase,Urine Negative (Negative); Nitrite,Urine Negative (Negative); PH, Urine 5.5 (5.0-8.0); Protein,Urine Negative (Negative); RBC,Urine 1 /hpf (0-5); Squamous Epithelial Cell,Urine 1 /hpf (0-4); Urobilinogen,Urine <2.0 mg/dL (<2.0); WBC,Urine 1 /hpf (0-5)
[2022-09-08] MEDS ORDERED: ONDANSETRON ODT 4 MG TAB PO STA (03:26)
== END 2022-09-08 03:41 | disposition home or self-care (01) ==
LOC: EC 00:39
DX: K52.9 Noninfective gastroenteritis and colitis, unspecified (principal); Z20.822 Contact with and (suspected) exposure to COVID-19; Z88.0 Allergy status to penicillin
CPT/HCPCS: 36415; 80053; 83690; 83735; 85025; 81001; 81025; 87636; 99284; 96360; 96361; 96372; J0500